=== PATIENT | male | born 1975 | race Caucasian/White ===

== ENCOUNTER 2016-02-28 07:11 | Emergency (ER) | payer BC ==
[2016-02-28] MEDS ORDERED: MORPHINE 4 MG/ML SYR ONE ×2 (07:34→08:06)
[2016-02-28] MEDS ORDERED: SODIUM CHLORIDE 0.9% 1,000 ML ONE (07:34)
[2016-02-28] MEDS ORDERED: KETOROLAC 30 MG/ML VIAL ONE (07:34)
[2016-02-28] MEDS ORDERED: ONDANSETRON 4 MG VIAL ONE ×2 (07:34→10:09)
[2016-02-28] MEDS ORDERED: DILAUDID 1 MG/ML AMP ONE (10:09)
== END 2016-02-28 12:00 | disposition home or self-care (01) ==
LOC: ER 07:11
DX: N13.2 Hydronephrosis with renal and ureteral calculous obstruction (principal); Z87.442 Personal history of urinary calculi
CPT/HCPCS: 36415; 74176; 80053; 81003; 83690; 85025; 96361; 96374; 96375; 96376